=== PATIENT | female | born 1990 | race Caucasian/White ===

== ENCOUNTER 2016-09-02 20:10 | Emergency (ER) | payer OTHER ==
[~2016-09-02] VITALS: Ht 165.1 cm; Wt 90.0 kg
[2016-09-02 22:43] VITALS: BP 123/63
== END 2016-09-02 22:59 | disposition home or self-care (01) ==
LOC: ER 20:12
DX: O26.899 Other specified pregnancy related conditions, unspecified trimester (principal); L03.113 Cellulitis of right upper limb; R03.0 Elevated blood-pressure reading, without diagnosis of hypertension; O30.009 Twin pregnancy, unspecified number of placenta and unspecified number of amniotic sacs, unspecified trimester; Z3A.00 Weeks of gestation of pregnancy not specified
CPT/HCPCS: 99283